=== PATIENT | male | born 1955 | race Caucasian/White ===

== ENCOUNTER 2019-06-29 13:44 | Outpatient (CLI) | payer BC ==
--- NOTE | 2019-06-29 14:40 | MMO ---
Bilateral MAMMO Bilat Diag [facility]. CLINICAL HISTORY: Patient is 64 years old and is seen for diagnostic exam and pain in the left breast. The patient has no family history of breast cancer. The patient has no personal history of cancer. VIEWS: The views performed were: bilateral craniocaudal with tomosynthesis; bilateral mediolateral oblique with tomosynthesis; and bilateral mediolateral with tomosynthesis. This study has been interpreted with the assistance of computer-aided detection. MAMMOGRAM FINDINGS: There are scattered fibroglandular densities. There is a flame-shaped retroareolar density on the left, consistent with gynecomastia. There are no suspicious masses, suspicious calcifications, or new areas of architectural distortion. IMPRESSION: THERE IS NO MAMMOGRAPHIC EVIDENCE OF MALIGNANCY. THE RESULTS OF THIS EXAM WERE SENT TO THE PATIENT. ACR BI-RADS Category 2 - Benign finding MAMMOGRAPHY NOTE: 1. A negative mammogram report should not delay a biopsy if a dominant of clinically suspicious mass is present. 2. Approximately 10% to 15% of breast cancers are not detected by mammography. 3. Adenosis and dense breasts may obscure an underlying neoplasm. Reported by: SARAH MAYES MD Electonically Signed: [id number]
== END 2019-06-29 13:45 | disposition home or self-care (01) ==
LOC: BICMAMMO 13:44
PROVIDERS: ATTEND Internal Medicine
DX: N64.4 Mastodynia (principal)
CPT/HCPCS: 77066; G0279

== ENCOUNTER 2021-03-13 16:24 | Inpatient (IN) | payer BC, MEDICARE ==
[~2021-03-13 16:24] MED LIST: Iopamidol-370 76% 500 ML 1 ML ONE
[2021-03-13] MEDS ORDERED: Mannitol 12.5 GM/50 ML ONE (16:50)
[2021-03-13 16:56] LABS: #Lymphocytes 1.6 thou/uL (1.20-3.40); #Monocytes 0.7 thou/uL (0.11-0.59); #Neutrophils 11.7 thou/uL (1.40-6.50); %Basophils 0.3 % (0.0-1.0); %Eosinophils 0.2 % (0.0-10.0); %Lymphocytes 11.1 % (21.0-51.0); %Monocytes 5.2 % (0.0-10.0); %Neutrophils 83.2 % (42.0-75.0); Hemoglobin 15.3 g/dL (14.0-18.0); Mean Corpuscular HGB CONC 32.9 g/dL (32.0-36.0); Mean Corpuscular Hemoglobin 30.2 pg (27.0-31.0); Mean Corpuscular Volume 91.7 fL (78.0-98.0); Mean Platelet Volume 7.3 fL (7.4-10.4); Platelet Count 216 thou/uL (130-400); RBC Distribution Width 12.5 % (11.5-14.5); Red Blood Cell (RBC) Count 5.06 mill/uL (4.70-6.10); White Blood Cell (WBC) Count 14.1 thou/uL (4.8-10.8)
[2021-03-13] MEDS ORDERED: manNITOL 20% 0 ML ONE (16:58)
[2021-03-13] MEDS ORDERED: Ondansetron PF 4 MG/2 ML Vial ONE ×2 (17:03)
[2021-03-13] MEDS ORDERED: Rocuronium Bromide 10 MG/ML (10ML VIAL) ONE ×2 (17:07→17:56)
[2021-03-13] MEDS ORDERED: Succinylcholine 200 MG/10 ml SYRINGE FS ONE (17:09)
[2021-03-13] MEDS ORDERED: EPINEPHrine 1 MG/10 ML Abboject SYRINGE ONE (17:11)
[2021-03-13 17:12] LABS: Prothrombin Time 13.6 sec (12.0-14.7)
[2021-03-13 17:13] LABS: PTT 25.7 sec (22.9-36.1)
[2021-03-13] MEDS ORDERED: Lidocaine 0.5%/Epinephrine 1:200,000 50 ml Vial ONE (17:14)
[2021-03-13] MEDS ORDERED: Bacitracin Zinc Ointment 30 gm TUBE ONE (17:14)
[2021-03-13] MEDS ORDERED: Sodium Chloride 0.9% 0 ML ONE (17:14)
[2021-03-13] MEDS ORDERED: ADMIXTURE FEE IV SCH (17:15)
[2021-03-13] MEDS ORDERED: HUMAN PROTHROMBIN COMPLX IV SCH (17:15)
[2021-03-13] MEDS ORDERED: Thrombin 5000 UNITS/5 ML VIAL ONE (17:15)
[2021-03-13] MEDS ORDERED: niCARdipine 20MG In NaCl 20 MG/200 ML BAG ONE (17:17)
[2021-03-13] MEDS ORDERED: Fentanyl 100 MCG/2 ML VIAL ONE ×2 (17:25→18:04)
[2021-03-13] MEDS ORDERED: PHENYLEPHRINE-NS 100 MCG/ML 10 ML SYRINGE ONE ×3 (17:26→19:16)
[2021-03-13] MEDS ORDERED: CEFAZOLIN 1 GM VIAL ONE (17:28)
[2021-03-13 17:32] LABS: ALT (SGPT) 25 U/L (8-55); AST (SGOT) 22 U/L (5-34); Albumin 4.6 g/dL (3.4-4.8); Alkaline Phosphatase 72 U/L (40-110); Anion Gap 15 mmol/L (10-20); BUN (Urea Nitrogen) 18 mg/dL (8.4-25.7); Bilirubin, Total 0.7 mg/dL (0.2-1.2); CK (CPK) 98 U/L (30-200); Calc. Creatinine Clearance 0 mL/min (70-130); Calcium 9.4 mg/dL (7.8-10.44); Carbon Dioxide 23 mmol/L (23-31); Chloride 104 mmol/L (98-107); Globulin 3.2 g/dL (2.4-3.5); Glucose 128 mg/dL (80-115); Potassium 3.7 mmol/L (3.5-5.1); Protein, Total 7.8 g/dL (5.8-8.1); Sodium 138 mmol/L (136-145)
[2021-03-13 17:35] LABS: Actual Bicarbonate (HCO3a) 21.9 mEq/L (22-28); Analyzer IN Cardio ER; CO2 Tension 38.9 mmHg (35.0-45.0); Carboxyhemoglobin (COHb) 0.1 gm% (0.0-3.0); Hemoglobin (Hb) 14.8 g/dL (14.0-18.0); O2 Tension (PaO2), arterial 87.9 mmHg (> 80.0); Potassium - ABG Lab 3.82 mmol/L (3.70-5.30); pH, Arterial 7.37 (7.35-7.45)
[2021-03-13 17:36] LABS: ALV-art Gradient 219.975 mmHg (0-20); Puncture Site RBA
[2021-03-13] MEDS ORDERED: Vecuronium 10 MG VIAL ONE ×2 (17:56→19:39)
[2021-03-13] MEDS ORDERED: PROPOFOL 200 MG/20 ML VIAL ONE (17:56)
[2021-03-13] MEDS ORDERED: FOSPHENYTOIN SODIUM IVPB SCH (18:45)
[2021-03-13] MEDS ORDERED: SODIUM CHLORIDE 0.9% IVPB SCH (18:45)
[2021-03-13] MEDS ORDERED: Labetalol HCl 100 MG/20 ML VIAL SLOW IVP PRN (19:23)
[2021-03-13] MEDS ORDERED: Ondansetron PF 4 MG/2 ML Vial IVP PRN (19:23)
[2021-03-13] MEDS ORDERED: hydrALAZINE 20 MG/ML VIAL SLOW IVP PRN (19:23)
[2021-03-13] MEDS ORDERED: Morphine 2 MG/ML VIAL SLOW IVP PRN ×2 (19:23→20:45)
[2021-03-13] MEDS ORDERED: Propofol 1,000 MG/100 ML VIAL IV ONE (20:40)
[2021-03-13 20:45] LABS: Actual Bicarbonate (HCO3a) 22.4 mEq/L (22-28); CO2 Tension 37.4 mmHg (35.0-45.0); Calcium, Ionized (arterial) 1.09 mmol/L (1.12-1.30); Carboxyhemoglobin (COHb) 0.6 gm% (0.0-3.0); Hemoglobin (Hb) 15.4 g/dL (14.0-18.0); O2 Tension (PaO2), arterial 99.8 mmHg (> 80.0); Potassium - ABG Lab 3.52 mmol/L (3.70-5.30)
[2021-03-13] MEDS ORDERED: Fentanyl BOLUS 250 ML IVPB PRN (20:45)
[2021-03-13] MEDS ORDERED: Propofol BOLUS 1,000 MG/100 ML VIAL IV PRN (20:45)
[2021-03-13] MEDS ORDERED: Fentanyl CADD 100 ML IV SCH (20:45)
[2021-03-13] MEDS ORDERED: DISCONTINUE PREVIOUS NARCOTIC PAIN MEDICATIONS AND BENZODIAZEPINES FS SCH (20:45)
[2021-03-13] MEDS ORDERED: Propofol 1,000 MG/100 ML VIAL IV PRN (20:45)
[2021-03-13] MEDS ORDERED: Lorazepam 2 MG/ML VIAL SLOW IVP PRN (20:45)
[2021-03-13 20:47] LABS: Puncture Site Arterial Line
[2021-03-13] MEDS ORDERED: Fentanyl CADD 100 ML ONE (20:57)
[2021-03-13] MEDS ORDERED: niCARdipine 25 MG in Sodium Chloride 0.9% 250 ML 240 ML IVPB SCH (21:00)
[2021-03-13 21:41] LABS: Lactic Acid 1.4 mmol/L (0.5-2.2)
[2021-03-13] MEDS: Famotidine/PF 20 mg/2ml Vial SLOW IVP SCH (22:01)
[2021-03-13] MEDS: Sodium Chloride 0.9% 1,000 ML IV SCH (22:05)
[2021-03-14 01:15] LABS: SARS-CoV-2 NAA Rapid Test Not Detected (NotDetected)
[2021-03-14] MEDS: CEFAZOLIN 2 GM in Premix Bag 1 BAG IVPB SCH ×2 (01:47→08:54)
[2021-03-14 05:00] LABS: #Basophils 0.1 thou/uL (0.0-0.2); #Lymphocytes 2.2 thou/uL (1.20-3.40); #Monocytes 0.9 thou/uL (0.11-0.59); #Neutrophils 7.7 thou/uL (1.40-6.50); %Lymphocytes 20.1 % (21.0-51.0); %Neutrophils 70.9 % (42.0-75.0); Hemoglobin 13.6 g/dL (14.0-18.0); Mean Corpuscular HGB CONC 32.6 g/dL (32.0-36.0); Mean Corpuscular Hemoglobin 30.1 pg (27.0-31.0); Mean Corpuscular Volume 92.1 fL (78.0-98.0); Mean Platelet Volume 7.3 fL (7.4-10.4); Platelet Count 205 thou/uL (130-400); RBC Distribution Width 12.7 % (11.5-14.5); Red Blood Cell (RBC) Count 4.52 mill/uL (4.70-6.10); White Blood Cell (WBC) Count 10.9 thou/uL (4.8-10.8)
[2021-03-14 05:19] LABS: Anion Gap 15 mmol/L (10-20); BUN (Urea Nitrogen) 17 mg/dL (8.4-25.7); Calc. Creatinine Clearance 132 mL/min (70-130); Calcium 8.1 mg/dL (7.8-10.44); Carbon Dioxide 23 mmol/L (23-31); Chloride 106 mmol/L (98-107); Glucose 121 mg/dL (80-115); Potassium 3.6 mmol/L (3.5-5.1); Sodium 140 mmol/L (136-145)
[2021-03-14] MEDS ORDERED: DC Sedation Protocol FS ONE (07:23)
[2021-03-14] MEDS: Sodium Chloride 0.9% 1,000 ML IV SCH ×2 (08:54→17:36)
[2021-03-14] MEDS: Famotidine/PF 20 mg/2ml Vial SLOW IVP SCH ×2 (08:54→20:38)
[2021-03-14] MEDS: Carvedilol 6.25 MG TAB PO SCH ×2 (08:54→20:37)
[2021-03-14] MEDS: HYDROcodone/Acetaminophen 5/325 mg Tablet PO PRN ×2 (17:57→23:01)
[2021-03-15] MEDS: CEFAZOLIN 2 GM in Premix Bag 1 BAG IVPB SCH (01:56)
[2021-03-15] MEDS: HYDROcodone/Acetaminophen 5/325 mg Tablet PO PRN (04:16)
[2021-03-15 06:57] VITALS: BMI 34.5
[2021-03-15] MEDS: Carvedilol 6.25 MG TAB PO SCH ×2 (08:44→20:18)
[2021-03-15] MEDS: Famotidine/PF 20 mg/2ml Vial SLOW IVP SCH ×2 (08:44→20:19)
[2021-03-15] MEDS: Sodium Chloride 0.9% 1,000 ML IV SCH ×3 (10:41→21:49)
[2021-03-15] MEDS ORDERED: Amlodipine 10 MG TAB PO SCH (12:45)
[2021-03-16] MEDS: Sodium Chloride 0.9% 1,000 ML IV SCH ×2 (06:24→16:38)
[2021-03-16] MEDS: Amlodipine 10 MG TAB PO SCH (08:11)
[2021-03-16] MEDS: Carvedilol 6.25 MG TAB PO SCH ×2 (08:12→20:27)
[2021-03-16] MEDS: HYDROcodone/Acetaminophen 5/325 mg Tablet PO PRN (08:12)
[2021-03-16] MEDS: Famotidine/PF 20 mg/2ml Vial SLOW IVP SCH ×2 (08:13→20:27)
[2021-03-16] MEDS: Acetaminophen 325 MG TAB PO PRN (18:34)
[2021-03-17] MEDS: Sodium Chloride 0.9% 1,000 ML IV SCH ×3 (04:12→23:04)
[2021-03-17] MEDS: Carvedilol 6.25 MG TAB PO SCH ×2 (07:48→20:24)
[2021-03-17] MEDS: Amlodipine 10 MG TAB PO SCH (07:48)
[2021-03-17] MEDS: Acetaminophen 325 MG TAB PO PRN (07:49)
[2021-03-17] MEDS: Famotidine/PF 20 mg/2ml Vial SLOW IVP SCH ×2 (11:51→20:24)
[2021-03-17] MEDS: Docusate 100 MG CAP PO PRN (18:52)
[2021-03-18] MEDS: Carvedilol 6.25 MG TAB PO SCH (08:37)
[2021-03-18] MEDS: Amlodipine 10 MG TAB PO SCH (08:38)
[2021-03-18] MEDS: Famotidine/PF 20 mg/2ml Vial SLOW IVP SCH (09:31)
[2021-03-18] MEDS: Sodium Chloride 0.9% 1,000 ML IV SCH (09:31)
[2021-03-18 11:46] VITALS: BP 107/60; TEMP 98.2
[2021-03-18] MEDS: Docusate 100 MG CAP PO PRN (11:55)
== END 2021-03-18 14:51 | DRG 25 ==
LOC: ERS 16:24 → CCU 18:43 → SURG A 03-15 08:56
PROVIDERS: ADMIT Neurological Surgery; ATTEND Neurological Surgery
PROC: 00C40ZZ Extirpation of Matter from Intracranial Subdural Space, Open Approach (ICD-10-PCS; principal; 2021-03-13)
PROC: 0DH67UZ Insertion of Feeding Device into Stomach, Via Natural or Artificial Opening (ICD-10-PCS; 2021-03-13)
DX: I62.01 Nontraumatic acute subdural hemorrhage (principal); G93.5 Compression of brain; G81.91 Hemiplegia, unspecified affecting right dominant side; Z20.822 Contact with and (suspected) exposure to COVID-19; R29.719 NIHSS score 19; I48.91 Unspecified atrial fibrillation; I10 Essential (primary) hypertension; E78.5 Hyperlipidemia, unspecified; E06.1 Subacute thyroiditis; G47.33 Obstructive sleep apnea (adult) (pediatric); Z79.01 Long term (current) use of anticoagulants; Z79.899 Other long term (current) drug therapy
CPT/HCPCS: 31500; 36415; 36600; 51702; 70450; 70496; 70498; 71045; 80048; 80053; 82550; 82805; 83605; 84443; 85025; 85610; 85730; 86850; 86900; 86901; 93005; 94002; 96365; 96375; C1713; C9132; J0171; J0690; J2001; J2150; J2270; J2405; J2704; J3010; J3490; J7050; J7799; Q2009; Q9967; S0028; U0002; U0005

== ENCOUNTER 2021-04-09 08:49 | Outpatient (CLI) | payer BC | END 2021-04-09 08:50 | disposition home or self-care (01) | LOC: BICCT 08:49 | PROVIDERS: ATTEND Neurological Surgery | DX: S06.5X0A Traumatic subdural hemorrhage without loss of consciousness, initial encounter (principal) | CPT/HCPCS: 70450 ==